=== PATIENT | male | born 1935 | race Caucasian/White ===

== ENCOUNTER 2017-10-11 09:45 | Inpatient (IN) | payer MEDICARE ==
[~2017-10-11] VITALS: Ht 180.3 cm; Wt 97.3 kg
[2017-10-11 10:16] LABS: BASOPHILS % (AUTO) 1.1 % (0.0-5.0); HEMATOCRIT 43.1 % (42-54); LYMPHOCYTES % (AUTO) 21.8 % (21.0-51.0); MEAN CORPUSCULAR HEMOGLOBIN 29.4 pg (27.0-33.0); MEAN CORPUSCULAR HGB CONC 34.3 g/dL (32.0-36.0); MEAN CORPUSCULAR VOLUME 85.6 fL (79-99); MONOCYTES % (AUTO) 11.1 % (3.0-13.0); PLATELET COUNT (AUTO) 183 K/uL (130-400); RED BLOOD CELL COUNT(AUTO) 5.03 MIL/uL (4.50-6.20); RED CELL DISTRIBUTION WIDTH 16.5 % (11.0-15.5); WHITE BLOOD COUNT (AUTO) 6.2 K/uL (4.8-10.8)
[2017-10-11 10:25] LABS: POTASSIUM 3.9 mmol/L (3.5-5.1)
[2017-10-11 10:28] LABS: ALBUMIN 2.9 g/dL (3.5-5.0); BILIRUBIN,TOTAL 7.1 mg/dL (0.2-1.0); TOTAL PROTEIN, SERUM 7.2 g/dL (6.0-8.3)
[2017-10-11] MEDS ORDERED: IOPAMIDOL-370 75 ML VIAL IV ONE (10:41)
[2017-10-11] MEDS ORDERED: DIATR MEGLU/DIATRIZOATE SODIUM 30 ML BOTTLE ONE (10:50)
[2017-10-11 12:35] VITALS: BP 150/71
[2017-10-11] MEDS ORDERED: SODIUM CHLORIDE 0.9% 10 ML VIAL IVP PRN (12:45)
[2017-10-11] MEDS ORDERED: DEXTROSE 50%-WATER 50 ML DISP.SYRIN IV ONE (15:52)
[2017-10-11] MEDS ORDERED: DIPHENHYDRAMINE HCL 25 MG CAPSULE PO PRN (16:00)
[2017-10-11] MEDS ORDERED: ZOLPIDEM TARTRATE 5 MG TAB PO PRN (16:00)
[2017-10-11] MEDS ORDERED: DEXTROSE 50%-WATER 50 ML DISP.SYRIN IV PRN (16:00)
[2017-10-11] MEDS ORDERED: GLUCAGON 1MG KIT 1 MG ML IM PRN (16:00)
[2017-10-11 16:04] VITALS: BP 149/75
[2017-10-11] MEDS: INSULIN R PO SSI SQ SCH (16:30)
[2017-10-11] MEDS ORDERED: METO25TA6 PO (16:54)
[2017-10-11] MEDS ORDERED: PRAV40TA3 PO (16:54)
[2017-10-11] MEDS ORDERED: METF500T6 PO (16:54)
[2017-10-11] MEDS ORDERED: FINA5TAB41 PO (16:54)
[2017-10-11] MEDS ORDERED: ASPI-555 PO (16:54)
[2017-10-11 19:40] VITALS: BP 149/80
[2017-10-11] MEDS: FAMOTIDINE 20MG TAB 20 MG TAB PO SCH (23:12)
[2017-10-11 23:27] VITALS: BP 133/73
[2017-10-12] VITALS (30 sets, daily range): BP systolic 124–165; BP diastolic 62–89
[2017-10-12 03:52] LABS: EOSINOPHILS % (AUTO) 3.5 % (0.0-8.0); HEMATOCRIT 41.9 % (42-54); LYMPHOCYTES % (AUTO) 24.9 % (21.0-51.0); MEAN CORPUSCULAR HEMOGLOBIN 29.4 pg (27.0-33.0); MEAN CORPUSCULAR HGB CONC 34.4 g/dL (32.0-36.0); MEAN CORPUSCULAR VOLUME 85.4 fL (79-99); MONOCYTES % (AUTO) 12.6 % (3.0-13.0); PLATELET COUNT (AUTO) 192 K/uL (130-400); RED BLOOD CELL COUNT(AUTO) 4.91 MIL/uL (4.50-6.20); RED CELL DISTRIBUTION WIDTH 16.7 % (11.0-15.5); WHITE BLOOD COUNT (AUTO) 6.2 K/uL (4.8-10.8)
[2017-10-12 04:02] LABS: ALBUMIN 2.7 g/dL (3.5-5.0); BILIRUBIN,DIRECT 7.7 mg/dL (0.0-0.3); BILIRUBIN,TOTAL 9.3 mg/dL (0.2-1.0); POTASSIUM 4.2 mmol/L (3.5-5.1)
[2017-10-12] MEDS: INSULIN R PO SSI SQ SCH ×2 (05:51→16:30)
[2017-10-12] MEDS: FAMOTIDINE 20MG TAB 20 MG TAB PO SCH ×2 (09:00→20:42)
[2017-10-12] MEDS: ENOXAPARIN SODIUM 40 MG/0.4 ML SYRINGE SQ SCH (09:00)
[2017-10-12] MEDS ORDERED: ISOVUE-370 50ML VIAL IV ONE (11:42)
[2017-10-12 15:43] LABS: INR 1.06 (0.85-1.15); PARTIAL THROMBOPLASTIN TIME 27.1 SEC (26.3-35.5); PROTHROMBIN TIME 11.1 SEC (9.6-11.6)
[2017-10-12] MEDS ORDERED: LIDOCAINE HCL 1% MDV 50ML VIAL ONE (16:38)
[2017-10-12] MEDS ORDERED: ISOVUE-300 100 ML VIAL IV ONE (16:38)
[2017-10-12] MEDS: METFORMIN HCL 500 MG TABLET PO SCH (17:00)
[2017-10-12] MEDS ORDERED: FENTANYL CITRATE PF 50 MCG/1 ML 2ML VIAL ONE (17:01)
[2017-10-12] MEDS ORDERED: MIDAZOLAM HCL 1 MG/ML 2ML VIAL ONE (17:17)
[2017-10-12] MEDS ORDERED: ACETAMINOPHEN 325 MG TAB ONE (20:38)
[2017-10-12] MEDS: ATORVASTATIN CALCIUM 10 MG TABLET PO SCH (20:42)
[2017-10-12] MEDS: METOPROLOL TARTRATE 25 MG TAB PO SCH (20:42)
[2017-10-13] VITALS: BP 173/88
[2017-10-13] MEDS: ACETAMINOPHEN 325 MG TAB PO PRN (02:21)
[2017-10-13 03:39] LABS: HEMATOCRIT 44.4 % (42-54); MEAN CORPUSCULAR HEMOGLOBIN 28.6 pg (27.0-33.0); MEAN CORPUSCULAR HGB CONC 33.4 g/dL (32.0-36.0); MEAN CORPUSCULAR VOLUME 85.8 fL (79-99); PLATELET COUNT (AUTO) 187 K/uL (130-400); RED BLOOD CELL COUNT(AUTO) 5.17 MIL/uL (4.50-6.20); WHITE BLOOD COUNT (AUTO) 6.7 K/uL (4.8-10.8)
[2017-10-13 03:49] LABS: ALBUMIN 2.7 g/dL (3.5-5.0); BILIRUBIN,TOTAL 4.6 mg/dL (0.2-1.0); POTASSIUM 3.9 mmol/L (3.5-5.1); TOTAL PROTEIN, SERUM 7.2 g/dL (6.0-8.3)
[2017-10-13 04:00] VITALS: BP 179/76
[2017-10-13] MEDS: INSULIN R PO SSI SQ SCH ×2 (06:48→12:26)
[2017-10-13] MEDS ORDERED: ACETAMINOPHEN-CODEINE 300/30MG TAB PO PRN (07:45)
[2017-10-13 08:00] VITALS: BP 194/78
[2017-10-13] MEDS ORDERED: ASPIRIN 81 MG EC TAB PO SCH (09:00)
[2017-10-13] MEDS: FAMOTIDINE 20MG TAB 20 MG TAB PO SCH ×2 (10:43→21:25)
[2017-10-13] MEDS: METFORMIN HCL 500 MG TABLET PO SCH ×2 (10:43→17:33)
[2017-10-13] MEDS: FINASTERIDE 5 MG TABLET PO SCH (10:44)
[2017-10-13] MEDS: ACETAMINOPHEN-CODEINE 300/30MG TAB PO PRN ×2 (10:44→17:34)
[2017-10-13] MEDS: METOPROLOL TARTRATE 25 MG TAB PO SCH ×2 (10:44→21:25)
[2017-10-13] MEDS: ENOXAPARIN SODIUM 40 MG/0.4 ML SYRINGE SQ SCH (10:47)
[2017-10-13 11:50] VITALS: BP 164/74
[2017-10-13 12:46] LABS: AMYLASE 1293 U/L (25-115)
[2017-10-13 14:07] LABS: LIPASE 22466 U/L (114-286)
[2017-10-13 16:00] VITALS: BP 173/79
[2017-10-13 19:00] VITALS: BP 154/74
[2017-10-13] MEDS: ATORVASTATIN CALCIUM 10 MG TABLET PO SCH (21:25)
[2017-10-14] VITALS: BP 142/70
[2017-10-14 04:00] VITALS: BP 163/84
[2017-10-14] MEDS: INSULIN R PO SSI SQ SCH ×2 (06:07→16:30)
[2017-10-14] MEDS: ACETAMINOPHEN-CODEINE 300/30MG TAB PO PRN ×2 (06:22→11:16)
[2017-10-14 08:00] VITALS: BP 132/69
[2017-10-14] MEDS: FAMOTIDINE 20MG TAB 20 MG TAB PO SCH ×2 (09:03→19:59)
[2017-10-14] MEDS: METOPROLOL TARTRATE 25 MG TAB PO SCH ×2 (09:03→19:59)
[2017-10-14] MEDS: FINASTERIDE 5 MG TABLET PO SCH (09:03)
[2017-10-14] MEDS: ENOXAPARIN SODIUM 40 MG/0.4 ML SYRINGE SQ SCH (09:03)
[2017-10-14 11:00] VITALS: BP 172/61
[2017-10-14] MEDS: METFORMIN HCL 500 MG TABLET PO SCH ×2 (11:15→17:47)
[2017-10-14] MEDS: MORPHINE SULFATE 4 MG/1ML SYG IV PRN (11:42)
[2017-10-14] MEDS: SODIUM CHLORIDE 0.9% 1000ML 1,000 ML IV SCH ×3 (14:16→20:59)
[2017-10-14 16:00] VITALS: BP 117/64
[2017-10-14 19:00] VITALS: BP 149/77
[2017-10-14] MEDS: MORPHINE SULFATE 2 MG/ML 1ML SYG IVP PRN (19:59)
[2017-10-14] MEDS: ATORVASTATIN CALCIUM 10 MG TABLET PO SCH (19:59)
[2017-10-15] VITALS (7 sets, daily range): BP systolic 137–164; BP diastolic 60–78
[2017-10-15] MEDS: SODIUM CHLORIDE 0.9% 1000ML 1,000 ML IV SCH (04:27)
[2017-10-15] MEDS: INSULIN R PO SSI SQ SCH ×2 (06:18→17:33)
[2017-10-15 08:56] LABS: HEMATOCRIT 43.5 % (42-54); MEAN CORPUSCULAR HEMOGLOBIN 29.3 pg (27.0-33.0); MEAN CORPUSCULAR HGB CONC 33.7 g/dL (32.0-36.0); MEAN CORPUSCULAR VOLUME 87.1 fL (79-99); PLATELET COUNT (AUTO) 166 K/uL (130-400); RED CELL DISTRIBUTION WIDTH 16.5 % (11.0-15.5); WHITE BLOOD COUNT (AUTO) 9.9 K/uL (4.8-10.8)
[2017-10-15 09:04] LABS: CREATININE 1.1 mg/dL (0.5-1.5); POTASSIUM 4.6 mmol/L (3.5-5.1)
[2017-10-15] MEDS ORDERED: METFORMIN HCL 500 MG TABLET ONE (09:44)
[2017-10-15] MEDS: FINASTERIDE 5 MG TABLET PO SCH (09:50)
[2017-10-15] MEDS: ENOXAPARIN SODIUM 40 MG/0.4 ML SYRINGE SQ SCH (09:51)
[2017-10-15] MEDS: METOPROLOL TARTRATE 25 MG TAB PO SCH ×2 (09:51→20:26)
[2017-10-15] MEDS: FAMOTIDINE 20MG TAB 20 MG TAB PO SCH ×2 (09:51→20:26)
[2017-10-15] MEDS: 1/2 NORMAL SALINE 1,000 ML IV SCH ×2 (09:54→21:11)
[2017-10-15 10:19] LABS: AMYLASE 56 U/L (25-115); LIPASE 399 U/L (114-286)
[2017-10-15] MEDS: ACETAMINOPHEN 325 MG TAB PO PRN (16:54)
[2017-10-15] MEDS: ATORVASTATIN CALCIUM 10 MG TABLET PO SCH (20:26)
[2017-10-15] MEDS: METFORMIN HCL 500 MG TABLET PO SCH (20:26)
[2017-10-15] MEDS: MORPHINE SULFATE 2 MG/ML 1ML SYG IVP PRN (22:25)
[2017-10-16 03:41] VITALS: BP 146/74
[2017-10-16] MEDS: MORPHINE SULFATE 2 MG/ML 1ML SYG IVP PRN (03:50)
[2017-10-16 03:58] LABS: HEMATOCRIT 39.5 % (42-54); MEAN CORPUSCULAR HEMOGLOBIN 30.2 pg (27.0-33.0); MEAN CORPUSCULAR HGB CONC 35.2 g/dL (32.0-36.0); MEAN CORPUSCULAR VOLUME 85.9 fL (79-99); NUCLEATED RED BLOOD CELLS 0.1 % (0.0-0.19); PLATELET COUNT (AUTO) 175 K/uL (130-400); RED CELL DISTRIBUTION WIDTH 15.9 % (11.0-15.5)
[2017-10-16 04:00] LABS: CREATININE 0.9 mg/dL (0.5-1.5); POTASSIUM 3.5 mmol/L (3.5-5.1)
[2017-10-16] MEDS: INSULIN R PO SSI SQ SCH ×2 (06:33→16:29)
[2017-10-16 07:38] VITALS: BP 163/87
[2017-10-16] MEDS: FINASTERIDE 5 MG TABLET PO SCH (09:54)
[2017-10-16] MEDS: ENOXAPARIN SODIUM 40 MG/0.4 ML SYRINGE SQ SCH (09:54)
[2017-10-16] MEDS: FAMOTIDINE 20MG TAB 20 MG TAB PO SCH ×2 (09:55→20:37)
[2017-10-16] MEDS: METOPROLOL TARTRATE 25 MG TAB PO SCH ×2 (09:55→20:36)
[2017-10-16] MEDS: METFORMIN HCL 500 MG TABLET PO SCH ×2 (09:55→20:36)
[2017-10-16 11:00] VITALS: BP 130/66
[2017-10-16] MEDS: 1/2 NORMAL SALINE 1,000 ML IV SCH (12:23)
[2017-10-16 16:00] VITALS: BP_SYST 131; BP_SYST 160; BP_DIAS 69; BP_DIAS 80
[2017-10-16 19:00] VITALS: BP 142/76
[2017-10-16] MEDS: ATORVASTATIN CALCIUM 10 MG TABLET PO SCH (20:37)
[2017-10-16 23:00] VITALS: BP 180/90
[2017-10-17] VITALS (20 sets, daily range): BP systolic 114–189; BP diastolic 61–84
[2017-10-17 04:36] LABS: HEMATOCRIT 40.5 % (42-54); MEAN CORPUSCULAR HEMOGLOBIN 29.4 pg (27.0-33.0); MEAN CORPUSCULAR HGB CONC 34.3 g/dL (32.0-36.0); MEAN CORPUSCULAR VOLUME 85.7 fL (79-99); PLATELET COUNT (AUTO) 195 K/uL (130-400); RED BLOOD CELL COUNT(AUTO) 4.73 MIL/uL (4.50-6.20); RED CELL DISTRIBUTION WIDTH 15.8 % (11.0-15.5); WHITE BLOOD COUNT (AUTO) 7.3 K/uL (4.8-10.8)
[2017-10-17 04:48] LABS: ALBUMIN 2.1 g/dL (3.5-5.0); BILIRUBIN,DIRECT 1.5 mg/dL (0.0-0.3); BILIRUBIN,TOTAL 2.4 mg/dL (0.2-1.0); CREATININE 1.1 mg/dL (0.5-1.5); POTASSIUM 3.8 mmol/L (3.5-5.1); TOTAL PROTEIN, SERUM 6.6 g/dL (6.0-8.3)
[2017-10-17] MEDS: INSULIN R PO SSI SQ SCH ×2 (05:59→18:21)
[2017-10-17] MEDS: METOPROLOL TARTRATE 25 MG TAB PO SCH ×2 (06:20→20:45)
[2017-10-17] MEDS: 1/2 NORMAL SALINE 1,000 ML IV SCH ×3 (06:25→21:58)
[2017-10-17] MEDS: ENOXAPARIN SODIUM 40 MG/0.4 ML SYRINGE SQ SCH (08:28)
[2017-10-17] MEDS: FINASTERIDE 5 MG TABLET PO SCH (08:28)
[2017-10-17] MEDS: FAMOTIDINE 20MG TAB 20 MG TAB PO SCH ×2 (08:28→20:45)
[2017-10-17] MEDS: METFORMIN HCL 500 MG TABLET PO SCH ×2 (08:28→20:45)
[2017-10-17] MEDS ORDERED: ISOVUE-370 50ML VIAL IV ONE (09:26)
[2017-10-17] MEDS ORDERED: PROPOFOL 10 MG/ML 20ML VIAL IV ONE ×2 (09:54)
[2017-10-17] MEDS: MORPHINE SULFATE 4 MG/1ML SYG IV PRN (11:24)
[2017-10-17] MEDS: ACETAMINOPHEN-CODEINE 300/30MG TAB PO PRN (14:20)
[2017-10-17] MEDS: ATORVASTATIN CALCIUM 10 MG TABLET PO SCH (20:45)
[2017-10-18] VITALS (7 sets, daily range): BP systolic 86–155; BP diastolic 38–76
[2017-10-18 03:45] LABS: HEMATOCRIT 38.6 % (42-54); MEAN CORPUSCULAR HEMOGLOBIN 29.5 pg (27.0-33.0); MEAN CORPUSCULAR HGB CONC 34.4 g/dL (32.0-36.0); MEAN CORPUSCULAR VOLUME 85.8 fL (79-99); PLATELET COUNT (AUTO) 202 K/uL (130-400); RED BLOOD CELL COUNT(AUTO) 4.49 MIL/uL (4.50-6.20)
[2017-10-18 04:09] LABS: BILIRUBIN,TOTAL 2.6 mg/dL (0.2-1.0); POTASSIUM 3.8 mmol/L (3.5-5.1); TOTAL PROTEIN, SERUM 6.3 g/dL (6.0-8.3)
[2017-10-18] MEDS: INSULIN R PO SSI SQ SCH (06:28)
[2017-10-18] MEDS: FAMOTIDINE 20MG TAB 20 MG TAB PO SCH (09:00)
[2017-10-18] MEDS: METFORMIN HCL 500 MG TABLET PO SCH (09:00)
[2017-10-18] MEDS: ENOXAPARIN SODIUM 40 MG/0.4 ML SYRINGE SQ SCH (09:00)
[2017-10-18] MEDS: METOPROLOL TARTRATE 25 MG TAB PO SCH (10:14)
[2017-10-18] MEDS: FINASTERIDE 5 MG TABLET PO SCH (10:16)
[2017-10-18] MEDS ORDERED: PROPOFOL 10 MG/ML 20ML VIAL IV ONE ×3 (12:26→13:08)
[2017-12-07] MEDS ORDERED: INSU300I SQ (16:23)
== END 2017-10-18 17:24 | disposition home or self-care (01) | DRG 435 ==
LOC: EDH 09:45 → EDHIP 09:52 → 3AH 12:13
PROVIDERS: ADMIT Internal Medicine; ATTEND Internal Medicine
PROC: 0F9930Z Drainage of Common Bile Duct with Drainage Device, Percutaneous Approach (ICD-10-PCS; principal; 2017-10-12)
PROC: BF10YZZ Fluoroscopy of Bile Ducts using Other Contrast (ICD-10-PCS; 2017-10-12)
DX: C25.9 Malignant neoplasm of pancreas, unspecified (principal); K83.1 Obstruction of bile duct; K85.90 Acute pancreatitis without necrosis or infection, unspecified; E11.22 Type 2 diabetes mellitus with diabetic chronic kidney disease; R17 Unspecified jaundice; N31.2 Flaccid neuropathic bladder, not elsewhere classified; R63.4 Abnormal weight loss; E78.5 Hyperlipidemia, unspecified; D64.9 Anemia, unspecified; I12.9 Hypertensive chronic kidney disease with stage 1 through stage 4 chronic kidney disease, or unspecified chronic kidney disease; I25.10 Atherosclerotic heart disease of native coronary artery without angina pectoris; N18.9 Chronic kidney disease, unspecified; Z51.5 Encounter for palliative care; Z74.01 Bed confinement status; Z90.49 Acquired absence of other specified parts of digestive tract; Z95.5 Presence of coronary angioplasty implant and graft
CPT/HCPCS: 36415; 43232; 47534; 49405; 74170; 74330; 76700; 80048; 80053; 80076; 82150; 82378; 82948; 83690; 85025; 85027; 85610; 85730; 86316; 87070; 87076; 88173; 88305; 99152; 99153; C1729; C1769; C1773; C1894; J1650; J1815; J2250; J2270; J2704; J3010; J3490; J7030; J7070; Q9963; Q9967

== ENCOUNTER 2017-10-24 18:19 | Emergency (ER) | payer MEDICARE ==
[~2017-10-24 18:19] MED LIST: ASPI-555 PO; FINA5TAB41 PO; METF500T6 PO; METO25TA6 PO
[2017-10-24 18:49] LABS: EOSINOPHILS % (AUTO) 1.1 % (0.0-8.0); HEMATOCRIT 40.7 % (42-54); LYMPHOCYTES % (AUTO) 12.5 % (21.0-51.0); MEAN CORPUSCULAR HEMOGLOBIN 28.5 pg (27.0-33.0); MEAN CORPUSCULAR HGB CONC 34.2 g/dL (32.0-36.0); MEAN CORPUSCULAR VOLUME 83.3 fL (79-99); MONOCYTES % (AUTO) 8.7 % (3.0-13.0); NEUTROPHILS % (AUTO) 76.7 % (40.0-77.0); PLATELET COUNT (AUTO) 346 K/uL (130-400); RED BLOOD CELL COUNT(AUTO) 4.88 MIL/uL (4.50-6.20); RED CELL DISTRIBUTION WIDTH 15.4 % (11.0-15.5); WHITE BLOOD COUNT (AUTO) 12.7 K/uL (4.8-10.8)
[2017-10-24 18:53] LABS: POTASSIUM 3.6 mmol/L (3.5-5.1)
[2017-10-24 18:57] LABS: ALBUMIN 2.1 g/dL (3.5-5.0); BILIRUBIN,TOTAL 1.3 mg/dL (0.2-1.0); TOTAL PROTEIN, SERUM 7.2 g/dL (6.0-8.3)
[2017-12-07] MEDS ORDERED: INSU300I SQ (16:23)
== END 2017-10-24 23:35 | disposition home or self-care (01) ==
LOC: EDH 18:19
DX: T85.638A Leakage of other specified internal prosthetic devices, implants and grafts, initial encounter (principal); K86.9 Disease of pancreas, unspecified; R53.83 Other fatigue; E11.9 Type 2 diabetes mellitus without complications; E78.5 Hyperlipidemia, unspecified; Z90.49 Acquired absence of other specified parts of digestive tract; Z88.2 Allergy status to sulfonamides; Z98.890 Other specified postprocedural states; Z88.8 Allergy status to other drugs, medicaments and biological substances
CPT/HCPCS: 36415; 71045; 76705; 80053; 82550; 83690; 84484; 85025; 93005

== ENCOUNTER 2017-12-11 07:18 | Day surgery (SDC) | payer MEDICARE ==
[2017-12-07 15:14] VITALS: BP 133/71
[~2017-12-11] VITALS: Ht 177.8 cm; Wt 98.4 kg
[~2017-12-11 07:18] MED LIST changes: +INSU300I SQ
[2017-12-11 07:45] VITALS: BP 130/74
[2017-12-11 08:03] LABS: BASOPHILS % (AUTO) 0.7 % (0.0-5.0); EOSINOPHILS % (AUTO) 3.4 % (0.0-8.0); HEMATOCRIT 43.6 % (42-54); LYMPHOCYTES % (AUTO) 26.9 % (21.0-51.0); MEAN CORPUSCULAR HEMOGLOBIN 28.4 pg (27.0-33.0); MEAN CORPUSCULAR HGB CONC 33.7 g/dL (32.0-36.0); MEAN CORPUSCULAR VOLUME 84.4 fL (79-99); MONOCYTES % (AUTO) 9.3 % (3.0-13.0); NEUTROPHILS % (AUTO) 59.7 % (40.0-77.0); PLATELET COUNT (AUTO) 208 K/uL (130-400); RED BLOOD CELL COUNT(AUTO) 5.16 MIL/uL (4.50-6.20); RED CELL DISTRIBUTION WIDTH 15.6 % (11.0-15.5); WHITE BLOOD COUNT (AUTO) 7.5 K/uL (4.8-10.8)
[2017-12-11 08:17] LABS: INR 0.99 (0.85-1.15); PROTHROMBIN TIME 10.4 SEC (9.6-11.6)
[2017-12-11] MEDS ORDERED: SODIUM CHLORIDE 0.9% 1000ML 1,000 ML IV ONE (08:41)
[2017-12-11] MEDS ORDERED: LIDOCAINE HCL/EPINEPHRINE 50 ML VIAL IJ ONE (09:29)
[2017-12-11] MEDS ORDERED: HEPARIN SODIUM 1000UNIT/ML 10ML VIAL ONE (09:29)
[2017-12-11] MEDS ORDERED: LIDOCAINE HCL 1% MDV 50ML VIAL ONE (09:29)
[2017-12-11] MEDS ORDERED: FENTANYL CITRATE PF 50 MCG/1 ML 2ML VIAL ONE (09:59)
[2017-12-11] MEDS ORDERED: MIDAZOLAM HCL 1 MG/ML 2ML VIAL ONE (09:59)
[2017-12-11] MEDS ORDERED: OCTYL 2-CYANOACRYLATE 1 EACH TP ONE (10:17)
[2017-12-11 10:35] VITALS: BP 148/72
[2017-12-11 10:50] VITALS: BP 138/70
[2017-12-11 11:05] VITALS: BP 135/73
[2017-12-11 11:20] VITALS: BP 138/71
[2017-12-11 11:35] VITALS: BP 139/68
== END 2017-12-11 11:35 | disposition home or self-care (01) ==
LOC: DAH 07:18
PROVIDERS: ATTEND Internal Medicine Medical Oncology
DX: Z45.2 Encounter for adjustment and management of vascular access device (principal); Z85.46 Personal history of malignant neoplasm of prostate; E11.9 Type 2 diabetes mellitus without complications; I10 Essential (primary) hypertension; E78.5 Hyperlipidemia, unspecified; I25.10 Atherosclerotic heart disease of native coronary artery without angina pectoris; I21.3 ST elevation (STEMI) myocardial infarction of unspecified site; N40.0 Benign prostatic hyperplasia without lower urinary tract symptoms; Z79.899 Other long term (current) drug therapy; Z79.4 Long term (current) use of insulin; Z79.84 Long term (current) use of oral hypoglycemic drugs; Z88.2 Allergy status to sulfonamides; Z88.8 Allergy status to other drugs, medicaments and biological substances
CPT/HCPCS: 36415; 36561; 77001; 82948; 85025; 85610; 85730; A4606; C1788; C1894; J1644; J2250; J3010; J3490; J7030; 99156; 99157

== ENCOUNTER 2019-02-19 22:02 | Inpatient (IN) | payer MEDICARE | END 2019-02-22 12:30 | disposition home or self-care (01) | LOC: EDH 22:02 → EDHIP 02-20 03:29 → 3CH 02-20 06:31 | DX: A41.9 Sepsis, unspecified organism (principal); C25.9 Malignant neoplasm of pancreas, unspecified; Z85.07 Personal history of malignant neoplasm of pancreas ==

== ENCOUNTER 2020-07-18 10:37 | Inpatient (IN) | payer MEDICARE ==
[~2020-07-18] VITALS: Ht 180.3 cm; Wt 91.4 kg
[~2020-07-18 10:37] MED LIST changes: -ASPI-555 PO; +BRIN8DRO OP; +DIPH1TAB PO; +ENOX150D SQ; +FAMO1TAB17 PO; +LATA7.5D OP; +METF-444 PO; -METF500T6 PO; +OMEP10SU2 PO; +PROC10TA13 PO
[2020-07-18] MEDS ORDERED: 0.9%NACL 1000ML 1,000 ML IV ONE (11:32)
[2020-07-18 12:14] LABS: BILIRUBIN,URINE Negative (NEGATIVE); COLOR,URINE Yellow (YELLOW); GLUCOSE, URINE (UA) Negative (NEGATIVE); KETONES,URINE Negative (NEGATIVE); LEUKOCYTE ESTERASE ,URINE Small (NEGATIVE); NITRATE,URINE Negative (NEGATIVE); OCCULT BLOOD,URINE Trace (NEGATIVE); PH,URINE 5.5 (5.0-8.0); PROTEIN,URINE Trace mg/dL (NEGATIVE); UROBILINOGEN,URINE 0.2 mg/dL (0.2-1.0)
[2020-07-18 12:35] LABS: APPEARANCE,URINE CLEAR (CLEAR)
[2020-07-18 12:57] LABS: BASOPHILS % (AUTO) 0.9 % (0.0-5.0); EOSINOPHILS % (AUTO) 0.5 % (0.0-8.0); LYMPHOCYTES % (AUTO) 10.3 % (21.0-51.0); MEAN CORPUSCULAR HEMOGLOBIN 30.8 pg (27.0-33.0); MEAN CORPUSCULAR HGB CONC 30.3 g/dL (32.0-36.0); MEAN CORPUSCULAR VOLUME 101.5 fL (79-99); MONOCYTES % (AUTO) 2.3 % (3.0-13.0); NEUTROPHILS % (AUTO) 85.5 % (40.0-77.0); PLATELET COUNT (AUTO) 286 K/uL (130-400); RED BLOOD CELL COUNT(AUTO) 1.95 MIL/uL (4.50-6.20); RED CELL DISTRIBUTION WIDTH 18.6 % (11.0-15.5); WHITE BLOOD COUNT (AUTO) 2.1 K/uL (4.8-10.8)
[2020-07-18 13:00] LABS: BACTERIA,URINE Many /HPF (None Seen); RBC,URINE 0-1 /HPF (0-1); SQUAMOUS EPITHELIAL CELL,UR Rare /HPF (0-2)
[2020-07-18 13:05] LABS: HEMATOCRIT 19.8 % (42-54)
[2020-07-18 14:02] LABS: ALANINE AMINOTRANSFERASE 19 U/L (12-78); ASPARTATE AMINOTRANSFERASE 25 U/L (10-37); BILIRUBIN,TOTAL 0.2 mg/dL (0.2-1.0); CARBON DIOXIDE 26 mmol/L (21-32); CHLORIDE 109 mmol/L (101-111); CREATININE 1.2 mg/dL (0.5-1.5); GLOMERULAR FILTR. RATE CALC 61 mL/min (>60); GLUCOSE,RANDOM 214 mg/dL (70-105); POTASSIUM 4.3 mmol/L (3.5-5.1); SODIUM SERUM 140 mmol/L (136-145); TOTAL PROTEIN, SERUM 5.2 g/dL (6.0-8.3); UREA NITROGEN, BLOOD 16 mg/dL (7-18)
[2020-07-18 14:14] LABS: LIPASE < 50 U/L (114-286)
[2020-07-18 14:17] LABS: BASOPHILS % (MANUAL) 1 % (0-2); LYMPHOCYTES % (MANUAL) 11 % (22-44); MAN.DIFF COMMENT-IMPRESSION MANUAL DIFFERENTIAL; PLATELET MORPHOLOGY COMMENT ADEQUATE; SEGMENTED NEUTROPHILS % 88 % (40-70)
[2020-07-18] MEDS: 0.9%NACL 1000ML 1,000 ML IV SCH (15:30)
[2020-07-18] MEDS ORDERED: ONDANSETRON 4MG INJ IVP PRN (15:30)
[2020-07-18] MEDS ORDERED: CEFTRIAXONE 1G VIAL ONE (19:45)
[2020-07-18] MEDS ORDERED: ONDANSETRON 4MG INJ ONE (22:37)
[2020-07-18] MEDS ORDERED: MORPHINE 4 MG SYG ONE (22:37)
[2020-07-19 04:00] VITALS: BP 142/62
[2020-07-19 06:28] LABS: BASOPHILS % (AUTO) 1.2 % (0.0-5.0); EOSINOPHILS % (AUTO) 1.8 % (0.0-8.0); HEMATOCRIT 23.1 % (42-54); LYMPHOCYTES % (AUTO) 25.2 % (21.0-51.0); MEAN CORPUSCULAR HEMOGLOBIN 30.5 pg (27.0-33.0); MEAN CORPUSCULAR HGB CONC 31.2 g/dL (32.0-36.0); MEAN CORPUSCULAR VOLUME 97.9 fL (79-99); MONOCYTES % (AUTO) 6.7 % (3.0-13.0); NEUTROPHILS % (AUTO) 64.5 % (40.0-77.0); PLATELET COUNT (AUTO) 226 K/uL (130-400); RED BLOOD CELL COUNT(AUTO) 2.36 MIL/uL (4.50-6.20); RED CELL DISTRIBUTION WIDTH 18.7 % (11.0-15.5); WHITE BLOOD COUNT (AUTO) 1.6 K/uL (4.8-10.8)
[2020-07-19 07:22] LABS: B-TYPE NATRIURETIC PEPTIDE 928 pg/mL (0-100)
[2020-07-19 08:07] VITALS: BP 125/70
[2020-07-19] MEDS ORDERED: CEFTRIAXONE 1G VIAL IVP SCH (09:00)
[2020-07-19] MEDS: MORPHINE 4 MG SYG IVP PRN (09:42)
[2020-07-19] MEDS: 0.9%NACL 1000ML 1,000 ML IV SCH ×2 (11:30→17:49)
[2020-07-19 12:00] VITALS: BP 121/82
[2020-07-19] MEDS ORDERED: TBO-FILGRASTIM 480 MCG/0.8 ML ML SQ SCH (14:00)
[2020-07-19 16:00] VITALS: BP 127/52
[2020-07-19 20:00] VITALS: BP 136/50
[2020-07-20] VITALS: BP 130/58
[2020-07-20 04:01] VITALS: BP 148/62
[2020-07-20 04:52] LABS: CREATININE 1.2 mg/dL (0.5-1.5); HEMATOCRIT 27.6 % (42-54); MEAN CORPUSCULAR HEMOGLOBIN 30.9 pg (27.0-33.0); MEAN CORPUSCULAR HGB CONC 31.5 g/dL (32.0-36.0); MEAN CORPUSCULAR VOLUME 97.9 fL (79-99); NUCLEATED RED BLOOD CELLS 1.3 % (0.0-0.19); RED BLOOD CELL COUNT(AUTO) 2.82 MIL/uL (4.50-6.20); WHITE BLOOD COUNT (AUTO) 1.6 K/uL (4.8-10.8)
[2020-07-20 08:00] VITALS: BP 121/52
[2020-07-20] MEDS: MORPHINE 4 MG SYG IVP PRN (09:26)
[2020-07-20] MEDS: 0.9%NACL 1000ML 1,000 ML IV SCH (09:26)
[2020-07-20 11:51] VITALS: BP 118/53
[2020-07-20 16:00] VITALS: BP 125/62
[2020-11-24] MEDS ORDERED: IRON1CAP30 PO (16:09)
[2020-11-24] MEDS ORDERED: TRAM50TA4 PO (16:09)
== END 2020-07-20 18:40 | disposition home or self-care (01) | DRG 641 ==
LOC: EDH 10:37 → EDHIP 15:10 → 3DH 07-19 03:01
PROVIDERS: ADMIT Internal Medicine Hematology & Oncology; ATTEND Internal Medicine Hematology & Oncology
PROC: 30233N1 Transfusion of Nonautologous Red Blood Cells into Peripheral Vein, Percutaneous Approach (ICD-10-PCS; principal; 2020-07-18)
DX: E86.0 Dehydration (principal); D61.818 Other pancytopenia; N39.0 Urinary tract infection, site not specified; C25.9 Malignant neoplasm of pancreas, unspecified; C79.9 Secondary malignant neoplasm of unspecified site; E86.9 Volume depletion, unspecified; N31.2 Flaccid neuropathic bladder, not elsewhere classified; E11.9 Type 2 diabetes mellitus without complications; E78.5 Hyperlipidemia, unspecified; Z74.01 Bed confinement status; Z88.2 Allergy status to sulfonamides; Z88.8 Allergy status to other drugs, medicaments and biological substances; Z20.822 Contact with and (suspected) exposure to COVID-19
CPT/HCPCS: 36415; 36430; 71045; 80048; 80053; 81001; 82948; 83605; 83690; 83880; 84484; 85025; 85027; 86850; 86900; 86901; 86923; 87040; 87077; 87088; 87186; 87426; 87804; 93005; G0378; J0696; J2270; J2405; J7030; P9016; U0003